=== PATIENT | female | born 1950 | race Native Hawaiian/Other Pacific Islander ===

== ENCOUNTER 2021-01-27 19:36 | Emergency (ER) | payer OTHER ==
[~2021-01-27] VITALS: Ht 172.7 cm; Wt 108.9 kg
[2021-01-27 20:12] LABS: PLATELET COUNT 161 K/uL (152-353)
[2021-01-27 20:26] LABS: POTASSIUM 2.4 mmol/L (3.6-5.2)
[2021-01-27 22:45] VITALS: BP 178/94; TEMP 98.7
[2021-01-28] MEDS ORDERED: [UNRECOGNIZED DRUG - OTHER] PO (13:11)
[2021-01-28] MEDS ORDERED: DOCU100C10 PO (13:12)
[2021-01-28] MEDS ORDERED: B-121000 MC4 PO (13:13)
[2021-01-28] MEDS ORDERED: FE TABS325 MG PO (13:15)
[2021-01-28] MEDS ORDERED: GLYCERIN1.2 GM RE (13:16)
[2021-01-28] MEDS ORDERED: HYDR10TA47A PO (13:18)
[2021-01-28] MEDS ORDERED: HYDROXYZINE HYD25 MG PO (13:19)
[2021-01-28] MEDS ORDERED: LANTUS SOL100 UNIT/M SC (13:20)
[2021-01-28] MEDS ORDERED: MAG OXIDE400 MG PO (13:21)
[2021-01-28] MEDS ORDERED: METHO2.5 PO (13:22)
[2021-01-28] MEDS ORDERED: MIDODRINE5 MG PO (13:23)
[2021-01-28] MEDS ORDERED: MILK OF MA400 MG/5 M PO (13:24)
[2021-01-28] MEDS ORDERED: MIRALAX17 GM/SCOO PO (13:25)
[2021-01-28] MEDS ORDERED: CLOP75TA2 PO (13:26)
[2021-01-28] MEDS ORDERED: ACTOS15 MG PO (13:26)
[2021-01-28] MEDS ORDERED: PANTOPRAZOLE 40MG TA PO (13:27)
[2021-01-28] MEDS ORDERED: CRESTOR20 MG PO (13:28)
[2021-01-28] MEDS ORDERED: LEVO0.0218 PO (13:29)
[2021-01-28] MEDS ORDERED: TYLENOL325 MG PO (13:30)
[2021-01-30] MEDS ORDERED: CALCITRIOL PO (14:20)
[2021-01-30] MEDS ORDERED: CITRACAL PO (14:23)
[2021-01-30] MEDS ORDERED: [UNRECOGNIZED DRUG - OTHER] PO (14:23)
[2021-01-30] MEDS ORDERED: HYDROXYZINE HYD25 MG PO (14:25)
[2021-01-30] MEDS ORDERED: TRAZ50TA36 PO (14:27)
== END 2021-01-27 22:45 | disposition other institution (70) ==
LOC: ED 19:40
PROVIDERS: Emergency Medicine
DX: R45.851 Suicidal ideations (principal); E87.6 Hypokalemia; M25.552 Pain in left hip; Z11.52 Encounter for screening for COVID-19; Z04.6 Encounter for general psychiatric examination, requested by authority
CPT/HCPCS: 80053; 85027; 87635; 93005; 99283; U0003